=== PATIENT | male | born 1990 | race Caucasian/White ===

== ENCOUNTER 2016-05-13 19:58 | Emergency (ER) | payer OTHER ==
[~2016-05-13] VITALS: Ht 170.2 cm; Wt 73.9 kg
[2016-05-13] MEDS ORDERED: AMOXICILLIN 500 MG (AMOXIL) CAPSULE PO ONE (21:00)
[2016-05-13] MEDS ORDERED: ED- HYDROcodone/ACETAMINOPHEN 5MG/325MG (NORCO) 6 TABLETS/BTL PO ONE (21:00)
[2016-05-13] MEDS ORDERED: KETOROLAC 60 MG/2 ML (TORADOL) VIAL IM ONE (21:00)
[2016-05-13 21:12] VITALS: BP 165/90
== END 2016-05-13 21:10 | disposition home or self-care (01) ==
LOC: ED 20:01
DX: K08.89 Other specified disorders of teeth and supporting structures (principal)
CPT/HCPCS: 96372; 99282; J1885; 99283

== ENCOUNTER 2016-06-01 19:55 | Emergency (ER) | payer OTHER ==
[~2016-06-01] VITALS: Ht 170.2 cm; Wt 75.0 kg
[2016-06-01 20:06] VITALS: BP 142/86
[2016-06-01] MEDS ORDERED: KETOROLAC 60 MG/2 ML (TORADOL) VIAL IM ONE (20:25)
[2016-06-01] MEDS ORDERED: ED- TRAMADOL 50 MG (ULTRAM) 6 TABLETS/BTL PO ONE (22:55)
== END 2016-06-01 23:12 | disposition home or self-care (01) ==
LOC: ED 19:56
DX: S90.31XA Contusion of right foot, initial encounter (principal); S60.222A Contusion of left hand, initial encounter; V86.59XA Driver of other special all-terrain or other off-road motor vehicle injured in nontraffic accident, initial encounter
CPT/HCPCS: 73130; 73630; 96372; 99283; J1885